=== PATIENT | male | born 1980 | race Caucasian/White ===

== ENCOUNTER 2017-02-12 19:24 | Emergency (ER) | payer OTHER ==
--- NOTE | ~2017-02-12 | MR17 ---
[facility] A Service of [facility] & [facility] RADIOLOGY TEXT RESULTS PATIENT: NIDA GUAJARDO LOCATION: [facility] : [birth year] UNIT #: [id number] AGE: [address]: Wellington Mccoy DO SEX: M ORDER DR: [id number] [facility] [address] [place], [place] [address] [id number] E MR#: [id number] Acc #: [id number] NAME: NIDA GUAJARDO : 1980 SEX: M STUDY DATE/TIME: 02/12/2017 21:23 UNIT: [facility] ROOM: STUDY DESCRIPTION: MR Brain WWo Contrast Attending Physician: Wellington Mccoy D.O. Ordering Physician: Wellington Mccoy D.O. Primary Care Physician: Baudilio Rowley MRI CENTER REPORT This report is preliminary unless electronic signature is present. EXAM MRI brain with and without HISTORY Neurologic deficit, dizziness, lightheaded since 4 p.m. today. Feels like he is going to pass out. Presyncope, sees white flashes. No known injury. History of testicular cancer fall of 2015. COMMENT MRI of the brain was performed prior to and following intravenous administration of 15 mL of MultiHance. There is no prior. Some motion limitation of the study displayed motion limiting sequences. Borderline cerebellar or tonsillar ectopia. No evidence for a recent ischemic insult on the diffusion weighted imaging. No extraaxial fluid collection. The patient likely has an anterior dominant circulation. This would predispose to symptoms of vertebrobasilar insufficiency if there is superimposed disease. Posterior circulation appears small and there are bilateral posterior communicators. Mild white matter signal abnormality is likely allowing for the motion limitation of the study. The mastoid air cells are clear. There is mild paranasal sinus mucosal thickening but no air-fluid level. No MRI evidence for intracranial hemorrhage. Following contrast administration, also allowing for motion, there is no pathologic intracranial enhancement. No convincing evidence for intracranial metastatic disease. IMPRESSION 1. No evidence for recent ischemic insult on the diffusion series. 2. This is a motion limited study. Allowing for this, no convincing evidence for intracranial metastatic disease. 3. Minor nonspecific white matter disease. [facility] A Service of [facility] & [facility] RADIOLOGY TEXT RESULTS PATIENT: NIDA GUAJARDO LOCATION: [facility] : 82 UNIT #: [id number] AGE: [address]: Wellington Mccoy DO SEX: M ORDER DR: 4. 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 This could predispose the symptoms of vertebrobasilar insufficiency if there is superimposed disease. Please correlate further clinically. This is a study of the brain only. If more information is needed with respect to the status of the vasculature, MR angiography of head and neck vessels suggested. Dictated by... Audra Tong M.D. THIS IS AN ELECTRONICALLY VERIFIED REPORT Audra Tong M.D. at 02/13/2017 2:45 PM SAC/df TD: 02/13/2017 12:51 JOB #: [id number] MRI CENTER REPORT Page 1 of 1 COPY
--- NOTE | ~2017-02-12 | CR72 ---
[facility] A Service of [facility] RADIOLOGY TEXT RESULTS PATIENT: NIDA GUAJARDO LOCATION: [facility] : 82 UNIT #: [id number] AGE: [address]: Wellington Mccoy DO SEX: M ORDER DR: [id number] [facility] [address] [place], [place] [address] [id number] E MR#: [id number] Acc #: [id number] NAME: NIDA GUAJARDO : 1980 SEX: M STUDY DATE/TIME: 02/12/2017 19:55 UNIT: [facility] ROOM: STUDY DESCRIPTION: CR Chest Single View Portable Attending Physician: Wellington Mccoy D.O. Ordering Physician: Wellington Mccoy D.O. Primary Care Physician: Dolores Rowley M.D. MEDICAL IMAGING REPORT This report is preliminary unless electronic signature is present EXAM Chest x-ray portable, 2 films submitted. HISTORY The patient is in short of air, lightheaded today. COMMENT Frontal view of the chest submitted for review. COMPARISON No comparison. FINDINGS 2 films available to include the entirety of the chest. The heart size is normal. There is no acute-appearing parenchymal infiltrate, acute congestive failure, pleural effusion or pneumothorax. IMPRESSION No active disease. Dictated by... Audra Tong M.D. THIS IS AN ELECTRONICALLY VERIFIED REPORT Audra Tong M.D. at 02/13/2017 12:19 PM SAC/gz TD: 02/13/2017 11:30 JOB #: [id number] MEDICAL IMAGING REPORT Page 1 of 1 COPY
--- NOTE | ~2017-02-12 | CT16 ---
[facility] A Service of [facility] RADIOLOGY TEXT RESULTS PATIENT: NIDA GUAJARDO LOCATION: [facility] : 82 UNIT #: [id number] AGE: [address]: Wellington Mccoy DO SEX: M ORDER DR: [id number] [facility] [address] [place], [place] [address] [id number] E MR#: [id number] Acc #: [id number] NAME: NIDA GUAJARDO : 1980 SEX: M STUDY DATE/TIME: 02/12/2017 22:13 UNIT: [facility] ROOM: STUDY DESCRIPTION: CT Angio Chest for PE Attending Physician: Wellington Mccoy D.O. Ordering Physician: Wellington Mccoy D.O. Primary Care Physician: Baudilio Rowley MEDICAL IMAGING REPORT This report is preliminary unless electronic signature is present EXAM CT chest with contrast, pulmonary arteriography protocol, 02/12/2017 HISTORY 36-year-old male in the ED complaining of new onset shortness of air beginning earlier today. Dizziness, sensation of near-syncope. TECHNIQUE CT examination of the chest was performed with IV contrast using pulmonary arteriography protocol. 3-D CTA images of the pulmonary arteries were reformatted in multiple planes. This CT exam was performed with one or more of the following radiation dose reduction techniques: automatic exposure control, adjustment of mA and/or kV according to patient size, and iterative reconstruction. FINDINGS The pulmonary arteries are normal in appearance. Thoracic aorta is normal in caliber with no aneurysm or dissection. Heart size is normal, there is no pericardial effusion. The lungs are expanded and clear. No pulmonary infiltrate, pneumothorax or pleural effusion. No suspicious mass or adenopathy within the chest. Limited images through the uppermost abdomen are unremarkable. The patient has reported prior history of testicular cancer. There is no evidence of metastatic malignancy within the chest. The chest is unchanged since 06/27/2016. IMPRESSION 1. Negative CT examination of the chest using pulmonary arteriography protocol. No evidence of pulmonary embolism. 2. No evidence of metastatic disease within the chest. No change since [facility] A Service of [facility] & [facility] RADIOLOGY TEXT RESULTS PATIENT: NIDA GUAJARDO LOCATION: [facility] : 82 UNIT #: [id number] AGE: [address]: Wellington Mccoy DO SEX: M ORDER DR: 07/24/2016. Dictated by... Ruddy Meza M.D. THIS IS AN ELECTRONICALLY VERIFIED REPORT Ruddy Meza M.D. at 02/13/2017 10:05 PM Jama TD: 02/13/2017 12:41 JOB #: [id number] MEDICAL IMAGING REPORT Page 1 of 1 COPY
--- NOTE | ~2017-02-12 | EKG ---
PATIENT: NIDA GUAJARDO UNIT #: [id number] Ventricular Rate: 63 BPM Atrial Rate: 63 BPM P-R Interval: 148 ms QRS Duration: 82 ms Q-T Interval: 442 ms QTC Calculation(Bezet): 452 ms P [place]: 73 degrees Calculated R [place]: 72 degrees Calculated T [place]: 55 degrees Diagnosis Line: Sinus rhythm with marked sinus arrhythmia Diagnosis Line: Right atrial enlargement Diagnosis Line: Otherwise normal ECG Diagnosis Line: When compared with ECG of 24-JUL-2016 14:53, Diagnosis Line: No significant change was found Diagnosis Line: Confirmed by TONEY ALARCON MD ([id number]) on 02/14/2017 Diagnosis Line: 9:16:46 AM INTERPRETING MD: AGNES SANCHEZ
[~2017-02-12 19:24] MED LIST: BACTRIM DS TABL1 TA1 PO; HYDROCODON-ACE1 EAC9 PO; KEFLEX500 MG PO; LEVAQUIN PO; LEVAQUIN250 MG PO; LIDOCAINE VISCOU1 ML PO; NO MEDICATIONS; PERCOCET5/325 PO; VOLTAREN75 MG PO
[2017-02-12 20:13] LABS: BASOPHIL% 0.4 % (0-2.5); EOSINOPHIL# 0.3 X10e3 (0-0.7); EOSINOPHIL% 2.4 % (0.0-7.0); HEMATOCRIT 47.7 % (38.0-50.0); HEMOGLOBIN 15.5 gm/dL (13.0-16.0); LYMPHOCYTE# 1.5 X10e3 (1.0-3.5); LYMPHOCYTE% 13.8 % (17.0-45.0); MEAN CELL VOLUME 85.9 FL (83-96); MEAN CORPUSCULAR HGB CONC 32.6 g/dL (30-36); MEAN PLATELET VOLUME 8.5 FL (6.5-11.5); MONOCYTE# 0.7 X10e3 (0-1.0); MONOCYTE% 6.8 % (3.0-12.0); NEUTROPHIL# 8.1 X10e3 (1.5-7.1); NEUTROPHIL% 76.6 % (40-75); PLATELET COUNT 218 X10e3 (140-420); RED BLOOD COUNT 5.56 X10e (3.90-5.60); RED CELL DISTRIBUTION WIDTH 13.2 % (11.0-15.5); WHITE BLOOD COUNT 10.6 X10e3 (4.0-10.5)
[2017-02-12 20:22] LABS: URINE SOURCE CLEAN CATCH
[2017-02-12 20:28] LABS: URINE APPEARANCE CLOUDY; URINE BILIRUBIN NEG (NEG); URINE BLOOD NEG (NEG); URINE COLOR YELLOW; URINE GLUCOSE NEG (NEG); URINE KETONE 1+ (NEG); URINE LEUKOCYTE ESTERASE NEG (NEG); URINE NITRATE NEG (NEG); URINE PH 5.5 (5-8); URINE PROTEIN NEG (NEG); URINE SPECIFIC GRAVITY 1.032 (1.003-1.035)
[2017-02-12 20:32] LABS: DIFF IND NO
[2017-02-12 20:36] LABS: CULTURE INDICATED? NO
[2017-02-12 20:36] LABS: ALBUMIN SERUM 4.6 g/dL (3.5-5.0); ALKALINE PHOSPHATASE 112 U/L (32-92); ALT (SGPT) 11 U/L (10-40); AST (SGOT) 29 U/L (10-42); BILIRUBIN, DIRECT 0.2 mg/dL (0.0-0.2); BILIRUBIN,INDIRECT 0.9 mg/dL (0.0-0.9); BILIRUBIN,TOTAL 1.1 mg/dL (0.2-2.0); BLOOD UREA NITROGEN 12 mg/dL (9-23); CALCIUM SERUM 9.3 mg/dL (8.4-10.2); CARBON DIOXIDE 29 mmol/L (22-31); CHLORIDE 103 mmol/L (100-111); GLOM FILT RATE Estimated ABOVE60 mL/min (>60); GLUCOSE FASTING 89 mg/dL (70-110); POTASSIUM 3.8 mmol/L (3.5-5.1); PROTEIN TOTAL SERUM 7.7 g/dL (6.0-8.3); SODIUM 142 mmol/L (135-145)
[2017-02-12 20:39] LABS: AMPHETAMINE POS (NEG); BARBITURATES NEG (NEG); BENZODIAZEPINES NEG (NEG); COCAINE NEG (NEG); MARIJUANA NEG (NEG); OPIATES NEG (NEG); TRICYCLIC ANTIDEPRESSANTS NEG (NEG); U METHADONE NEG (NEG)
[2017-02-12 20:40] LABS: POC - CKMB 2.4 ng/mL (0.0-7.9); POC - TROPONIN <0.05 ng/mL (<=0.05)
== END 2017-02-12 23:55 | disposition home or self-care (01) ==
LOC: CED 19:24
PROVIDERS: Emergency Medicine
DX: R55 Syncope and collapse (principal); R42 Dizziness and giddiness; F15.10 Other stimulant abuse, uncomplicated; F17.210 Nicotine dependence, cigarettes, uncomplicated; Z88.5 Allergy status to narcotic agent; Z79.899 Other long term (current) drug therapy
CPT/HCPCS: 36415; 70553; 71010; 71275; 80048; 80076; 80307; 81003; 82553; 82947; 84484; 85025; 93005; 96360; 99285; A9577; Q9967

== ENCOUNTER 2017-02-13 08:03 | Emergency (ER) | payer OTHER | END 2017-02-13 08:06 | disposition left against medical advice (07) | LOC: CED 08:03 | DX: Z53.21 Procedure and treatment not carried out due to patient leaving prior to being seen by health care provider (principal) ==